=== PATIENT | male | born 1995 ===

== ENCOUNTER → 2018-12-31 | Outpatient (REF) | payer BC ==
[2018-12-31 13:49] LABS: SEMEN APPEARANCE OPAQUE (OPAQUE); SEMEN VOLUME 1.2 ml (2.0-5.0)
[2018-12-31 13:50] LABS: SEMEN VISCOSITY LIQUID (LIQUID); SEMEN pH 8.5 (7.0-8.0); SPERM CONCENTRATION 13.8 M/ml (>=15.0); WBC CONCENTRATION >1 M/ml (<=1 M/ml)
== END ==
LOC: M LAB REF 13:28
PROVIDERS: ATTEND Obstetrics & Gynecology
DX: N46.9 Male infertility, unspecified (principal)